=== PATIENT | male | born 1990 | race Caucasian/White ===

== ENCOUNTER 2016-04-23 18:34 | Emergency (ER) | payer SELFPAY ==
[2016-04-23 18:51] VITALS: BP 159/97
--- NOTE | 2016-04-23 19:41 | EDM.PDOC ---
ED HPI ENT - General Chief Complaint: ENT Problem Stated Complaint: TOOTCHACHE Time Seen by Provider: 04/23/16 19:37 Source of Information: Reports: Patient History Limitations: Reports: No limitations - History of Present Illness INITIAL COMMENTS - FREE TEXT/NARRATIVE: c/o intermittent dental pain to right lower jaw area for one year. past few days increased pain and swelling. No dental insurance. Broken tooth. No fevers. Pain radiates to ear and right eye - Related Data Allergies/ADRs: Allergies Allergy/AdvReac Type Severity Reaction Status Date / Time No Known Allergies Allergy Verified 03/28/16 14:16 Home Meds: Home Meds . [No Known Home Meds] 06/17/13 [History] Past Medical History - Past Health History Medical/Surgical History: Denies Medical/Surgical History - Infectious Disease History Infectious Disease History: Reports: Chicken pox Social & Family History - Family History Family Medical History: Noncontributory - Tobacco Use Smoking Status *Q: Current Every Day Smoker Years of Tobacco use: 4 Packs/Tins Daily: 0.5 Second Hand Smoke Exposure: Yes - Caffeine Use Caffeine Use: Reports: None - Alcohol Use Days Per Week of Alcohol Use: 0 - Recreational Drug Use Recreational Drug Use: No - Living Situation & Occupation Living situation: Reports: with family ED ROS ENT - Review of Systems Review Of Systems: ROS reveals no pertinent complaints other than HPI. ED EXAM, ENT - Physical Exam Exam: See Below Exam Limited By: No limitations General Appearance: alert, mild distress Eye Exam: bilateral eye: EOMI, normal inspection Ears: normal external exam, normal TMs Nose: normal inspection Mouth/Throat: Dental pain, Dental tenderness, Other (right lower 2nd molar large decay, lower jaw tender mild swelling) Head: facial swelling (right lower jaw) Neck: lymphadenopathy (R) Respiratory/Chest: no respiratory distress, lungs clear Cardiovascular: regular rate, rhythm Back: normal inspection, full range of motion Neurological: alert, oriented, normal cognition Skin: Warm, Dry, Intact Course - Vital Signs Last Recorded V/S: Last Vital Signs Temp 98 F 04/23/16 18:38 Pulse 72 04/23/16 18:38 Resp 16 04/23/16 18:38 BP 159/97 H 04/23/16 18:38 Pulse Ox 100 04/23/16 18:38 Departure - Departure Time of Disposition: 19:44 Disposition: Home, Self-Care 01 Condition: good Clinical Impression: Dental abscess, Dental caries Instructions: Dental Abscess Forms: ED Department Discharge Additional Instructions: amoxicillin 500mg one three times daily for one week alternate tyelnol and ibuprofen for discomfort chew on opposite side room temperature foods and liquids oral rinsing after meals follow up with dentist
[2016-04-23] MEDS ORDERED: Amoxicillin 500 MG Cap PO ONE (19:43)
== END 2016-04-23 19:53 | disposition home or self-care (01) ==
LOC: DL.ED 18:34
DX: K04.7 Periapical abscess without sinus (principal); K02.9 Dental caries, unspecified; F17.210 Nicotine dependence, cigarettes, uncomplicated
CPT/HCPCS: 99283; A9270